=== PATIENT | female | born 1965 | race Hispanic/Latino ===

== ENCOUNTER 2019-01-17 12:09 | Day surgery (SDC) | payer BC ==
[2019-01-17] MEDS ORDERED: Ketamine HCl 50 MG/ML IJ ONE (12:10)
[2019-01-17] MEDS ORDERED: DIPRIVAN 200 MG/20 ML IV ONE (12:10)
[2019-01-17] MEDS ORDERED: Depo-Medrol 40 MG/ML IM ONE (12:10)
[2019-01-17] MEDS ORDERED: Sodium Chloride 0.9(Preservative Free) 10 ML IJ ONE (12:10)
[2019-01-17] MEDS ORDERED: Lactated Ringers 1,000 ML IV ONE (14:57)
--- NOTE | 2019-01-17 16:12 | XRAY ---
Indication: Left L3-S1 transforaminal ELIN. Intraoperative fluoroscopy was provided for 27 seconds. Single digital spot image submitted for interpretation demonstrates posterior needle tips projecting over the expected course of the left L3-L5 nerve roots. Small amount of contrast injected for needle tip placement. Correlate with intraoperative findings/report.
--- NOTE | 2019-01-17 16:14 | XRAY ---
27 seconds of fluoroscopy was used in surgery for left L3-L4, L4-L5, and L5-S1 transforaminal ELIN.
== END 2019-01-17 14:16 | disposition home or self-care (01) ==
LOC: SDC-PAIN 12:09
PROVIDERS: ATTEND Psychiatry & Neurology Pain Medicine
DX: M54.16 Radiculopathy, lumbar region (principal); I10 Essential (primary) hypertension; D64.9 Anemia, unspecified; G56.00 Carpal tunnel syndrome, unspecified upper limb; Z79.899 Other long term (current) drug therapy
CPT/HCPCS: 64483; 64484; 72020; 77003; 84703; J1030; J2704; Q9966

== ENCOUNTER 2019-04-04 11:56 | Day surgery (SDC) | payer BC ==
[2019-04-04] MEDS ORDERED: Xylocaine 1% Vial 30 ML PF IJ ONE (11:57)
[2019-04-04] MEDS ORDERED: Sodium Chloride 0.9(Preservative Free) 10 ML IJ ONE (11:57)
[2019-04-04] MEDS ORDERED: Depo-Medrol 40 MG/ML IM ONE (11:57)
[2019-04-04] MEDS ORDERED: DIPRIVAN 200 MG/20 ML IV ONE (13:04)
[2019-04-04] MEDS ORDERED: Ketamine HCl 50 MG/ML ONE (13:04)
[2019-04-04] MEDS ORDERED: Lactated Ringers 1,000 ML IV ONE (13:13)
--- NOTE | 2019-04-04 15:25 | XRAY ---
Indication: L5-S1 ELIN. Intraoperative fluoroscopy was provided for 13 seconds. 2 digital spot images submitted for interpretation demonstrates midline posterior needle tip just posterior to the L5-S1 interspace. Small amount of contrast injected for needle tip placement. Correlate with intraoperative findings/report.
--- NOTE | 2019-04-04 17:01 | XRAY ---
13 seconds fluoroscopy time in surgery for l5-S1 ELIN.
== END 2019-04-04 13:42 | disposition home or self-care (01) ==
LOC: SDC-PAIN 11:56
PROVIDERS: ATTEND Psychiatry & Neurology Pain Medicine
DX: M54.16 Radiculopathy, lumbar region (principal); I10 Essential (primary) hypertension; D64.9 Anemia, unspecified; Z79.899 Other long term (current) drug therapy
CPT/HCPCS: 62323; 72100; 77003; 84703; J1030; J2001; J2704; Q9966